=== PATIENT | female | born 1960 | race Caucasian/White ===

== ENCOUNTER 2017-06-16 09:22 | Emergency (ER) | payer OTHER, BC ==
[~2017-06-16] VITALS: Ht 167.6 cm; Wt 104.3 kg
--- NOTE | 2017-06-16 09:40 | Emergency Room Report ---
History of Present Illness Time Seen by [id number] Comment The patient was brought in by ambulance for evaluation after a fall. She says that she tripped over a computer cord and felt something pop. She thought the pop initially was in her LEFT hip but says her hip does not currently hurt. She hurts more in her posterior mid thigh. It does not hurt so much with movement, but hurts with weightbearing. She does not think a pop when she landed on the floor, but before that when she actually tripped and twisted. No injury to head or neck. ALLERGIES Coded Allergies: No Known Allergies (06/16/17) History Medical History General CAD? No Angina: No ND: No Hypertension? Yes Hyperlipidemia? No CHF? No DVT? No PE? No COPD? No Asthma? No Anemia? No GERD? No Gastric ulcers? No GI Bleed? No Hernia? No Thyroid Problems? Yes Hypothyroidism? Yes CVA? No Seizures? No Diabetes? No Renal Insuffiency? No End Stage Renal Disease? No UTI? No Stones? No BPH? No GB Disease: No Nephritic Syndrome? No Asplenia? No Hepatitis? No Sickle Cell Disease? No Arthritis? No Migraines? No Cataracts? No Glaucoma? No MRSA? No HIV? No TB? No Anxiety? No Depression? No Cancer? No Immunization Hx Ped.Immunizations UTD Yes DT/Tetanus 1-4 Years Ago Surgical Hx Previous Surgery?N SENIOR QA [employer] Hx LMP N/A Social History Smoking Hx Smoker: Never Smoker Tobacco: No Type N/A Are you/the child exposed to second-hand smoke: No Alcohol Alcohol: No Review of Systems All Other Systems Reviewed and Negative Musculoskeletal see HPI, denies neck pain Psychiatric/Neurological denies numbness, denies weakness Physical Exam Vital Signs Vital Signs Date Time Temp Pulse Resp B/P Pulse O2 O2 Flow FiO2 Ox Delivery Rate 06/16 1020 71 18 142/75 99 06/16 0925 98.0 73 18 151/81 98 General Appearance no apparent distress Respiratory Status No: respiratory distress. Cardiovascular regular rate/rhythm, normal peripheral pulses Extremities Tenderness of posterior LEFT thigh at about the mid thigh area. No palpable defect or deformity. No tenderness of knee or hip. No pain with internal and external rotation of hip. Mild pain with flexion of hip and knee. Good range of motion. Neurovascular status intact. Neurologic alert, no motor/sensory deficits Medical Decision Making LABS/Meds/Orders Pt receiving controlled substance in ED? No Comment 9:39 AM: Patient refuses pain medication. Results/Orders Orders Procedure Date/time Status STABILIZE JOINT 06/16 1004 Active XRAY/CT/US XRAY/CT/US XRAY femur, hip Comment Hip X-ray interpreted by Anjum Mo MD. Negative for fracture, dislocation, or foreign body. Femur X-ray interpreted by Anjum Mo MD. Negative for fracture, dislocation, or foreign body. Departure Departure Disposition DC Home or Self Care(routine) Clinical Impression Primary Impression: Tear of left hamstring Qualifiers: Encounter type: initial encounter Qualified Code: S76.312A - Strain of muscle, fascia and tendon of the posterior muscle group at thigh level, left thigh, initial encounter Condition STABLE Referrals NO REFERRAL (PCP) Jose Francisco Mayer MD Call to make appointment to be seen within the next week. Patient Instructions DI for Hamstring Strain, How To Perform RICE (Rest, Ice, Compress, Elevate), How to Use Crutches Additional Instructions Crutches for-5 days. Prescriptions Current Visit Scripts Ibuprofen (Ibuprofen 800MG) 800 MG PO Q8HP PRN pain #15 TAB ED Critical Care Critical Care No at [id number]
--- OUTSIDE RECORDS SUMMARY | 2017-06-16 09:45 | External Medical Summary Rpt | CCD ---
Author Author , HOMER CONRAD Address Unknown Phone [email or web address] Purpose Continuity of Care Document - 04-10-2017 through 2016 Results Labs Lab Lab Date Result Refere Interp Status Commen Order Detail nces retati t Range on Streptococcus pyogenes Ag [Presence] in Unspecified specimen (04-10-2017 19:30) Strepto NOT NOTDETE complet coccus 0[address] ed pyogene 19:30 D s Ag [Presen ce] in Unspeci fied specime n
--- OUTSIDE RECORDS SUMMARY | 2017-06-16 09:45 | External Medical Summary Rpt | CCD ---
Author Author , HOMER CONRAD Address Unknown Phone [email or web address] Purpose Continuity of Care Document - 04-10-2017 through 2016 Results Labs Lab Lab Date Result Refere Interp Status Commen Order Detail nces retati t Range on Streptococcus pyogenes Ag [Presence] in Unspecified specimen (04-10-2017 19:30) Strepto NOT NOTDETE complet coccus [address] pyogene 19:30 D s Ag [Presen ce] in Unspeci fied specime n
--- OUTSIDE RECORDS SUMMARY | 2017-06-16 09:46 | External Medical Summary Rpt | CCD ---
Demographics Preferred Language Estonian Marital Status Unknown Gnosticism Affiliation Unknown Race Unknown Ethnic Group Unknown Author Author , HOUSTON CONRAD Address Unknown Phone Immunization Unable to retrieve immunization data due to connection failure with Immunization Registry. Please try again later.
--- OUTSIDE RECORDS SUMMARY | 2017-06-16 09:46 | External Medical Summary Rpt | CCD ---
Demographics Preferred Language Tajik Marital Status Unknown Mosque Affiliation Unknown Race Unknown Ethnic Group Unknown Author Author , HOUSTON CONRAD Address Unknown Phone Immunization Unable to retrieve immunization data due to connection failure with Immunization Registry. Please try again later.
--- OUTSIDE RECORDS SUMMARY | 2017-06-16 09:47 | External Medical Summary Rpt ---
Author Author [facility] Allen, [employer] Address Unknown Phone Unavailable Results Streptococcus pyogenes Ag [Presence] in Unspecified specimen Observa Value Referen Units Interpr Notes Date tion ce etation Range Strepto NOT NOTDETE No No LOT # Apr 10 coccus [address]ED informa informa N/A EXP 2016 pyogene D tion in tion in DATE 7:30 PM s Ag source source N/APERF [Presen data data ORMED ce] in IN Unspeci [facility]IN[facility] fied L LAB specime n
[2017-06-16] MEDS ORDERED: IBUPROFEN800 MG PO (10:05)
[2017-06-16 10:20] VITALS: BP 142/75
--- NOTE | 2017-06-16 12:16 | RADIOLOGY REPORT PS360 ---
HIP LT 2-3V W/PELVIS IF PERFOR HISTORY: Left hip pain following injury FALL WITH INJURY TO LEFT HIP ORDERING PHYSICIAN: Anjum Mo MD PATIENT AGE: 57 years COMPARISON: None FINDINGS: No fracture or dislocation. Small bony anomalies present in the femoral neck. A frontal view the pelvis shows mixed lucencies in the right acetabular roof region which may be related to subcortical cystic changes. MRI and Bone scan may confirm this finding too assure this does not represent an low-grade lytic process. IMPRESSION: 1. Negative left hip. 2. Cystic changes in the right acetabular roof as described above.
--- NOTE | 2017-06-16 12:24 | RADIOLOGY REPORT PS360 ---
FEMUR-LT-2 VIEWS HISTORY: Pain FALL WITH INJURY TO LEFT HIP ORDERING PHYSICIAN: Anjum Mo MD PATIENT AGE: 57 years COMPARISON: None FINDINGS: No fracture or dislocation. No lytic or blastic change. There is normal mineralization. Mild osteoarthritic changes are present at the knee. IMPRESSION: No acute finding
== END 2017-06-16 10:21 | disposition home or self-care (01) ==
LOC: ER 09:22
DX: S76.312A Strain of muscle, fascia and tendon of the posterior muscle group at thigh level, left thigh, initial encounter (principal); W01.0XXA Fall on same level from slipping, tripping and stumbling without subsequent striking against object, initial encounter; Y99.9 Unspecified external cause status; I10 Essential (primary) hypertension